=== PATIENT | male | born 1980 | race African-American/Black ===

== ENCOUNTER 2016-07-27 23:15 | Inpatient (IN) | payer OTHER ==
[~2016-07-27] VITALS: Ht 177.8 cm; Wt 80.0 kg
[~2016-07-27 23:15] MED LIST: BACLOFEN10 MG PO; DOXEPIN HCL10 MG PO; GABAPENTIN400 MG PO; IBUPROFEN800 MG PO; OPANA ER40 MG PO; OXYCODONE HCL30 MG PO; QUETIAPINE FUM200 MG PO; SERTRALINE HCL100 MG PO; TRAZODONE HCL50 MG PO
[2016-07-27 23:57] LABS: BICARBONATE 27.1 mEq/L (22-26); CARBOXY HGB 4.5 % (0-5); METHEMOGLOBIN 1.2 % (0-1.5); PCO2 48 mm Hg (35-45); PO2 490 mm Hg (80-100); pH 7.36 (7.35-7.45)
[2016-07-27 23:58] LABS: COMMENTS - BLOOD GASES A+C+; DEVICE 980; FI02 100 %; MECHANICAL RATE 14 resp/min; MODE AC; PEEP 5 CM/H20; SITE RR; TIDAL VOLUME 500 ML; TOTAL RESP RATE 14 resp/min
[2016-07-28 00:21] LABS: CHLORIDE 105 mEq/L (99-109); HEMATOCRIT 41.7 % (38.0-50.0); MCH 28.2 PG (29.0-34.0); MCHC 32.4 G/DL (30.0-36.0); MCV 87.2 FL (86-99); MEAN PLAT.VOLUME 9.2 uM^3 (9.0-12.4); PLATELET COUNT 292 K/uL (156-360); POTASSIUM 3.3 mEq/L (3.7-5.4); RBC DIS.WIDTH-CV 14.5 % (11.8-14.6); RBC DIS.WIDTH-SD 46.6 % (39-53); RED BLOOD COUNT 4.78 M/uL (4.00-5.50); SODIUM 140 mEq/L (136-147); WHITE BLOOD COUNT 6.3 K/uL (4.1-10.2)
[2016-07-28 00:24] LABS: GLUCOSE 176 mg/dL (70-99)
[2016-07-28 00:25] LABS: ANION GAP 13 MEQ/L (2-14)
[2016-07-28 00:26] LABS: TOTAL BILIRUBIN 0.2 mg/dL (0.0-1.0)
[2016-07-28 00:27] LABS: SERUM ETHYL ALCOHOL < 10 mg/dL
[2016-07-28 00:28] LABS: ALKALINE PHOSPHATASE 61 IU/L (3-129); GFR ESTIMATE (CALCULATED) > 59 mL/min/
[2016-07-28 00:29] LABS: UREA NITROGEN (BUN) 17 mg/dL (9-23)
[2016-07-28 00:31] LABS: SALICYLATE < 5.0 MG/DL (15-30)
[2016-07-28 00:32] LABS: CREATINE KINASE 149 IU/L (1-294); LIPASE 44 U/L (1.0-51.0); TOTAL CK 149 IU/L (1-294)
[2016-07-28 00:38] LABS: CK-MB 2.6 ng/mL (0.0-4.9)
[2016-07-28 00:47] LABS: AMPHETAMINE NEGATIVE (500 ng/mL); BARBITURATES NEGATIVE (200 ng/mL); BENZODIAZEPINES NEGATIVE (150 ng/mL); COCAINE PRESUMPTIVE POSITIVE (150 ng/mL); METHADONE NEGATIVE (200 ng/mL); METHAMPHETAMINE NEGATIVE (500 ng/mL); OPIATES (MORPHINE) NEGATIVE (100 ng/mL); PHENCYCLIDINE NEGATIVE (25 ng/mL); THC CANNABINOIDS NEGATIVE (50 ng/mL); TRICYCLIC ANTIDEPRESSANTS PRESUMPTIVE POSITIVE (300 ng/mL)
[2016-07-28 00:48] LABS: ADD MEDTOX COMMENT Y; INTERNAL CONTROLS VALID? YES; OXYCODONE PRESUMPTIVE POSITIVE (100 ng/mL); PROPOXYPHENE NEGATIVE (300 ng/mL)
[2016-07-28 03:09] LABS: ADD MIUA? NO; BILIRUBIN NEGATIVE; BLOOD NEGATIVE; COLOR STRAW ((YELLOW)); GLUCOSE (STRIP) NEGATIVE; KETONES NEGATIVE; LEUKOCYTES NEGATIVE; NITRITE NEGATIVE; PROTEIN (STRIP) NEGATIVE; SPECIFIC GRAVITY 1.011 (1.000-1.030); UCUL ADDED? NO; UROBILINOGEN 0.2 MG/DL (0.2-1.0)
[2016-07-28 04:52] LABS: BASE EXCESS 2.2 mEq/L (-3 to +3); BICARBONATE 27.8 mEq/L (22-26); CARBOXY HGB 2.2 % (0-5); METHEMOGLOBIN 0.8 % (0-1.5); PCO2 46 mm Hg (35-45); pH 7.39 (7.35-7.45)
[2016-07-28 04:53] LABS: COMMENTS - BLOOD GASES A+C+; DEVICE NC; O2 FLOW 2 L/MIN; PO2 85 mm Hg (80-100); SITE RR; TOTAL RESP RATE 14 resp/min
[2016-07-28 07:50] LABS: CHLORIDE 107 mEq/L (99-109); POTASSIUM 3.5 mEq/L (3.7-5.4); SODIUM 140 mEq/L (136-147)
[2016-07-28 07:52] LABS: GLUCOSE 106 mg/dL (70-99)
[2016-07-28 07:53] LABS: ANION GAP 7 MEQ/L (2-14)
[2016-07-28 07:54] LABS: TOTAL BILIRUBIN 0.3 mg/dL (0.0-1.0)
[2016-07-28 07:55] LABS: ALKALINE PHOSPHATASE 58 IU/L (3-129)
[2016-07-28 07:56] LABS: GFR ESTIMATE (CALCULATED) > 59 mL/min/
[2016-07-28 07:57] LABS: UREA NITROGEN (BUN) 14 mg/dL (9-23)
[2016-07-28 09:30] LABS: EOSINOPHIL COUNT 0.4 K/uL (0-0.3); HEMATOCRIT 41.8 % (38.0-50.0); IMMATURE GRANULOCYTE (%) 0.3 % (0.0-0.7); INSTRUMENT ABS NEUTROPHIL CT 8.4 K/uL; LYMPHOCYTE COUNT 2.1 K/uL (1.0-2.8); MCH 28.8 PG (29.0-34.0); MCHC 32.5 G/DL (30.0-36.0); MCV 88.4 FL (86-99); MONOCYTE (%) 9.2 % (3-12); MONOCYTE COUNT 1.1 K/uL (0-0.8); NEUTROPHIL (%) 69.5 % (45-76); NEUTROPHIL COUNT 8.4 K/uL (1.8-6.4); PLATELET COUNT 281 K/uL (156-360); RBC DIS.WIDTH-CV 14.6 % (11.8-14.6); RBC DIS.WIDTH-SD 47.6 % (39-53); RED BLOOD COUNT 4.73 M/uL (4.00-5.50)
[2016-07-28 09:31] LABS: WHITE BLOOD COUNT 12.1 K/uL (4.1-10.2)
[2016-07-28] MEDS ORDERED: NARCAN4 MG NS (10:09)
[2016-07-28] MEDS ORDERED: FLONASE16 G1 BOTH NARES (10:09)
[2016-07-28 10:15] VITALS: BP 112/56
== END 2016-07-28 10:11 | disposition left against medical advice (07) | DRG 917 ==
LOC: EME → EDBD 23:15 → EME 23:15 → EDOF 07-28 04:33
PROVIDERS: Emergency Medicine; Internal Medicine
PROC: 5A1935Z Respiratory Ventilation, Less than 24 Consecutive Hours (ICD-10-PCS; principal; 2016-07-27)
DX: T40.5X1A Poisoning by cocaine, accidental (unintentional), initial encounter (principal); J96.00 Acute respiratory failure, unspecified whether with hypoxia or hypercapnia; G93.40 Encephalopathy, unspecified; T43.201A Poisoning by unspecified antidepressants, accidental (unintentional), initial encounter; T40.2X1A Poisoning by other opioids, accidental (unintentional), initial encounter; G89.29 Other chronic pain; F32.9 Major depressive disorder, single episode, unspecified; F25.9 Schizoaffective disorder, unspecified; F17.200 Nicotine dependence, unspecified, uncomplicated
CPT/HCPCS: 36600; 70450; 71010; 80053; 81003; 82550; 82553; 82803; 83690; 84999; 85025; 85027; 87070; 87205; 93005; 94002; 99281; 99285; G0480; J1644; J2250; J2310; J2405; J2704; J7030; S0028